=== PATIENT | female | born 1965 | race Caucasian/White ===

== ENCOUNTER 2024-10-23 11:01 | Emergency (ER) | payer BC ==
[2024-10-23 12:47] LABS: #Basophils 0.03 10x3/uL (0.0-0.2); #Eosinophils Less than 0.03 10x3/uL (0.0-0.7); %Basophils 0.4 % (0.0-1.0); %Eosinophils 0.1 % (0.0-10.0); %Lymphocytes 9.8 % (21.0-51.0); %Monocytes 4.3 % (0.0-10.0); %Neutrophils 84.7 % (42.0-75.0); Hematocrit 37.4 % (36.0-47.0); Hemoglobin 12.2 g/dL (12.0-16.0); Mean Corpuscular HGB CONC 32.6 g/dL (32.0-36.0); Mean Corpuscular Hemoglobin 29.3 pg (27.0-31.0); Mean Corpuscular Volume 89.7 fL (78.0-98.0); Mean Platelet Volume 9.6 fL (7.4-10.4); Platelet Count 289 10x3/uL (130-400); RBC Distribution Width 12.1 % (11.5-14.5); Red Blood Cell (RBC) Count 4.17 mill/uL (4.20-5.40)
[2024-10-23 12:59] LABS: ALT (SGPT) 15 U/L (8-55); AST (SGOT) 14 U/L (5-34); Albumin 3.5 g/dL (3.5-5.0); Alkaline Phosphatase 118 U/L (40-110); Anion Gap 12 mmol/L (10-20); BUN (Urea Nitrogen) 13 mg/dL (9.8-20.1); Bilirubin, Total 0.3 mg/dL (0.2-1.2); Calc. Creatinine Clearance 0 mL/min (70-130); Calcium 8.5 mg/dL (7.8-10.44); Carbon Dioxide 24 mmol/L (22-29); Chloride 108 mmol/L (98-107); Estimated GFR 101; Globulin 2.6 g/dL (2.4-3.5); Glucose 116 mg/dL (70-105); Potassium 3.7 mmol/L (3.5-5.1); Protein, Total 6.1 g/dL (6.0-8.3); Sodium 140 mmol/L (136-145)
[2024-10-23 13:04] LABS: Troponin I Less than 0.010 ng/mL (< 0.028)
== END 2024-10-23 14:25 | disposition home or self-care (01) ==
LOC: ERS 11:01
DX: R51.9 Headache, unspecified (principal); R11.0 Nausea; R55 Syncope and collapse
CPT/HCPCS: 36415; 70450; 71045; 80053; 84484; 85025; 93005